=== PATIENT | male | born 1980 | race Caucasian/White ===

== ENCOUNTER 2016-06-28 18:35 | Inpatient (IN) | payer OTHER ==
[~2016-06-28] VITALS: Ht 162.6 cm; Wt 60.3 kg
[2016-06-28] MEDS ORDERED: SODIUM CHLORIDE 0.9% 500ML 500 ML IV STA (18:41)
[2016-06-28] MEDS ORDERED: LORAZEPAM 2 MG/ML 1 ML VIAL IV STA (18:41)
[2016-06-28 18:56] LABS: HEMATOCRIT 41.4 % (42-52); MEAN CELL VOLUME 97.4 fL (80-100); MEAN CORPUSCULAR HEMOGLOBIN 35.5 pg (25-34); MEAN CORPUSCULAR HGB CONC 36.5 g/dl (32-36); MEAN PLATELET VOLUME 8.9 fL (7.4-10.4); PLATELET COUNT 339 K/uL (130-400); RED BLOOD COUNT 4.25 M/uL (4.7-6.1); WHITE BLOOD COUNT 11.64 K/uL (4.8-10.8)
--- NOTE | 2016-06-28 18:57 | EMERGENCY ROOM VISIT NOTE ---
History Report prepared by Donna: Brandon Cunha Under the Supervision of: Dr. Narayan Rodney M.D. First contact with patient: 18:37 Chief Complaint: SEIZURE Stated Complaint: SEIZURE History of Present Illness The patient is a 36 year old male who presents to the Emergency Room with complaints of a sudden seizure occurring prior to arrival. The patient states that he was at work, and he had a seizure that lasted for about 2-3 minutes. The patient states that he has a history of seizures, and his last seizure was around two years ago. Additionally, he states that he takes Dilantin for his seizures. The patient states that he was fine all day until the seizure, and he states that he has no memory of the incident. The patient denies any headache even after hitting his head. He states that he is not on blood thinners, and he smokes about a pack of cigarettes per day. The patient denies loss of bladder function during the episode as well, and he states that he is taking his Dilantin regularly, however it upsets his stomach. Per EMS report, the patient did hit his head. The patient denies any headache currently. Source of History: patient Onset: prior to arrival Position: other (global) Quality: other (seizure) Timing: other (sudden) Associated Symptoms: No headache Review of Systems See HPI for pertinent positives & negatives. A total of 10 systems reviewed and were otherwise negative. Past Medical & Surgical Medical Problems: (1) Hyponatremia (2) Seizure Social History Smoking Status: Former Smoker Marital Status: single Occupation Status: employed Current/Historical Medications Scheduled Phenytoin Sodium (Dilantin), 100 MG PO QID Allergies Coded Allergies: No Known Allergies (Unverified , 06/28/16) Physical Exam Vital Signs Date Time Temp Pulse Resp B/P Pulse Ox O2 Delivery O2 Flow Rate FiO2 06/28/16 18:50 36.8 107 18 162/82 94 Room Air Physical Exam GENERAL: Patient is in no acute distress. HEENT: Subtle bite to the left side of the tongue. No laceration repair required. Normocephalic atraumatic, mucous membranes moist, no nasal congestion , no scleral icterus. No scalp hematoma. NECK: No stridor, no adenopathy, no meningismus, trachea is midline. LUNGS: Clear to auscultation bilaterally, no wheeze, no rhonchi, breath sounds equal. HEART: Without murmurs gallops or rubs, regular rate and rhythm. ABDOMEN: Soft, nontender, bowel sounds positive, no hernias, no peritonitis. EXTREMITIES: No cyanosis or edema, full range of motion of all the joints without pain or difficulty, no signs for acute trauma. NEUROLOGIC: Oriented x 3, no acute motor or sensory deficits, no focal weakness. SKIN: No rash, no jaundice, no diaphoresis. Medical Decision & Procedures Laboratory Results 06/28/16 18:41 06/28/16 18:41 Test 06/28/16 18:41 Red Blood Count 4.25 M/uL (4.7-6.1) Mean Corpuscular Volume 97.4 fL (80-100) Mean Corpuscular Hemoglobin 35.5 pg (25-34) Mean Corpuscular Hemoglobin Concent 36.5 g/dl (32-36) RDW Standard Deviation 47.1 fL (36.4-46.3) RDW Coefficient of Variation 13.3 % (11.5-14.5) Mean Platelet Volume 8.9 fL (7.4-10.4) Anion Gap 23.0 mmol/L (3-11) Est Creatinine Clear Calc Drug Dose 92.0 ml/min Estimated GFR () 122.0 Estimated GFR (Non- 105.2 BUN/Creatinine Ratio 5.1 (10-20) Osmolality 262 mOsm/kg (280-300) Calcium Level 9.7 mg/dl (8.5-10.1) Magnesium Level 2.1 mg/dl (1.8-2.4) Total Bilirubin 0.7 mg/dl (0.2-1) Direct Bilirubin 0.3 mg/dl (0-0.2) Aspartate Amino Transf (AST/SGOT) 49 U/L (15-37) Alanine Aminotransferase (ALT/SGPT) 36 U/L (12-78) Alkaline Phosphatase 145 U/L (45-117) Total Protein 7.6 gm/dl (6.4-8.2) Albumin 4.3 gm/dl (3.4-5.0) Thyroid Stimulating Hormone (TSH) 4.300 uIu/ml (0.300-4.500) Phenytoin (Dilantin) Level < 0.4 mcg/mL (10-20) Laboratory results reviewed by me. Medications Administered Medications (Trade) Dose Ordered Sig/Nohemy Route Start Time Stop Time Status Last Admin Dose Admin Sodium Chloride (Nss 500ml) 500 ml @ 999 mls/hr Q31M STAT IV 06/28/16 18:41 06/28/16 19:11 DC 06/28/16 18:41 999 MLS/HR Lorazepam 1 mg 1 mg NOW STAT IV 06/28/16 18:41 06/28/16 18:44 DC 06/28/16 19:08 1 MG Sodium Chloride 1,000 ml @ 200 mls/hr Q5H STAT IV 06/28/16 19:31 06/28/16 20:38 DC 06/28/16 20:10 200 MLS/HR Phenytoin Sodium/ Sodium Chloride (Dilantin IV Infusion/Nss 100ml) 120 ml @ 240 mls/hr TODAY@1945 IV 06/28/16 19:45 06/28/16 20:14 DC 06/28/16 20:10 240 MLS/HR Nicotine (Nicoderm Cq 21MG Patch) 1 patch NOW STAT EXT 06/28/16 19:48 06/28/16 19:49 DC 06/28/16 20:38 1 PATCH ED Course 1836: The patient was evaluated in room B4. A complete history and physical exam was performed. 1840: Ativan Inj 1mg IV, Sodium Chloride 500 ml @ 999 mls/hr IV 1930: Sodium Chloride 1000 ml @ 200 mls/hr IV 1939: I reevaluated the patient, and discussed the treatment plans. 1944: Phenytoin Sodium 1000mg/ Sodium Chloride 120ml @ 240 mls/hr IV 1947: NicoDerm Cq 21mg 1 Patch Ext 1950: I discussed the patient's case with Dr. Reyes. He is going to evaluate the patient for further treatment. Medical Decision The patient is a 36 year old male who presents to the ED with complaints of a seizure. Differential diagnoses considered include break through seizure, subtherapeutic Dilantin level, electrolyte imbalance, medication non-compliance , anemia, head injury, syncope. There is a very mild leukocytosis, this is likely consistent with just the stress of his presentation, no concerning anemia. No significant electrolyte abnormality or kidney failure sodium is low at 124, no kidney failure. The patient appears to be in a euthyroid state. EKG shows a sinus rhythm, no acute ischemia. The patient was given IV saline, he received IV Ativan and IV Dilantin. He was given a Nicotine patch. Given the seizure, given the low Dilantin level, given the hyponatremia, admission/observation was felt warranted. I spoke to the patient and case management. The on-call hospitalist was consulted. Consults Time Called: 1942 Consulting Physician: Dr. Reyes Returned Call: 1950 I discussed the patient's case with Dr. Reyes. He is going to evaluate the patient for further treatment. Impression Primary Impression: Seizure Additional Impression: Hyponatremia Scribe Attestation The scribe's documentation has been prepared under my direction and personally reviewed by me in its entirety. I confirm that the note above accurately reflects all work, treatment, procedures, and medical decision making performed by me. Departure Information Dispostion Being Evaluated By Hospitalist Patient Instructions My [facility] Health Problem Qualifiers
[2016-06-28] MEDS ORDERED: DLN100 PO (19:00)
[2016-06-28 19:27] LABS: BUN/CREATININE RATIO 5.1 (10-20); CALCIUM 9.7 mg/dl (8.5-10.1); CREATININE 0.93 mg/dl (0.60-1.40); POTASSIUM 3.8 mmol/L (3.5-5.1)
[2016-06-28] MEDS ORDERED: SODIUM CHLORIDE 0.9% 1000ML 1,000 ML IV STA (19:31)
[2016-06-28] MEDS ORDERED: PHENYTOIN SOD INJ 50 MG/ML 2 ML SYR IV STA (19:31)
[2016-06-28] MEDS ORDERED: PHENYTOIN IV INFUSION 1,000 MG in SODIUM CHLORIDE 0.9% 100ML 100 ML IV SCH (19:45)
[2016-06-28] MEDS ORDERED: NICOTINE 21 MG/24 HR TDSY EXT STA (19:48)
[2016-06-28 20:29] LABS: MAGNESIUM 2.1 mg/dl (1.8-2.4); THYROID STIMULATING HORMONE 4.3 uIu/ml (0.300-4.500)
[2016-06-28] MEDS ORDERED: GABAPENTIN 600 MG TAB PO SCH (20:45)
[2016-06-28] MEDS ORDERED: LORAZEPAM 2 MG/ML 1 ML VIAL IV PRN (20:45)
[2016-06-28] MEDS ORDERED: ACETAMINOPHEN 325 MG TAB PO PRN (20:45)
[2016-06-28] MEDS ORDERED: NITROGLYCERIN 0.4 MG SL PER TAB CHARGE SL PRN (20:45)
[2016-06-28] MEDS ORDERED: ONDANSETRON INJ 2 MG/ML 2 ML VIAL IV PRN (20:45)
[2016-06-28] MEDS ORDERED: LORAZEPAM INJ 1 MG in SYRINGE 0.5 ML IV PRN (20:45)
[2016-06-28] MEDS ORDERED: MULTI-VITAMIN INFUSION INJ 10 ML, THIAMINE HCL INJ 100 MG, FoLIC ACID INJ 1 MG, POTASSI... IV ONE ×5 (21:30)
[2016-06-28 21:37] LABS: URINE APPEARANCE CLEAR (CLEAR); URINE BILIRUBIN NEG (NEG); URINE COLOR YELLOW; URINE NITRITE NEG (NEG); URINE SPECIFIC GRAVITY 1.002 (1.000-1.030); UROBILINOGEN NEG (NEG); ZZUR CULT IF INDIC CLEAN CATCH NO
[2016-06-28 21:42] LABS: MANUAL MICROSCOPIC REQUIRED? NO; REVIEW REQ? NO
[2016-06-28 21:59] LABS: BENZODIAZEPINE, URINE NEG (NEG); COCAINE,URINE NEG (NEG); PHENCYCLIDINE, URINE NEG (NEG)
--- NOTE | 2016-06-28 22:32 | HISTORY & PHYSICAL EXAMINATION ---
DATE OF ADMISSION: 06/28/2016 PRIMARY CARE PHYSICIAN: Dr. Jacobsen Patient history obtained from the px and records. CHIEF COMPLAINT: Fall, possible seizures. HISTORY OF PRESENT ILLNESS: Medical history is significant for seizure disorder, ongoing alcohol and tobacco abuse. Patient has had known seizures since July 2011. Convulsions/generalized seizures witnessed by coworkers. [facility] [place] thought seizures were not alcohol related as they had occurred after the patient had cut down on drinking. Unremarkable EEG and MRI. Patient's last seizure was probably in July 2013. Patient admits to not being compliant with home Dilantin because of GI upset. He has not been taking for med for months. He admits to just taking Dilantin when he is about to go for a blood test. 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 As per records, sudden seizure activity witnessed by employer. Patient has no recollection of the events; thinks he may have been out for a couple of minutes. No tongue biting. No incontinence noted. No chest pain. no sob. No headache. MEDICAL HISTORY: As above. SURGERIES: None. HOME MEDICATIONS: The patient is supposed to take that Dilantin ER 100 mg three times a day as per outpx records. FAMILY HISTORY: No seizure disorder in the family. PERSONAL AND SOCIAL HISTORY: A pack daily. 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 REVIEW OF SYSTEMS: As per HPI. Occasional painless rectal bleeding. all other ROS negative. PHYSICAL EXAMINATION: VITAL SIGNS: Blood pressure noted to be 162/82 pulse rate 107, RR 18, temperature 36.8 and sats 94 on room air. GENERAL: Noted to be irate, no respiratory distress. SKIN: Normal color. HEENT: Hassell palpebral conjunctivae. Dry mucosa. NECK: No JVD. Supple. CHEST: Clear to auscultation. HEART: Tachycardic. ABDOMEN: Nontender. EXTREMITIES: No edema, no tenderness. NEUROLOGIC: No gross focality. LABORATORY DATA: Hemoglobin was noted to be 15, hematocrit 41 white cell count 11.6 and platelets 200 Sodium 124, potassium 3.8, chloride 86, CO2 15, BUN 5, creatinine 0.9, glucose was noted to be 119. Dilantin level was noted to be less than 0.4. ASSESSMENT: 1. Breakthrough seizures hx epilepsy medication noncompliance Patient seems to be in denial hx seizure DSO diagnosis. Seizure threshold possibly lowered by acute on possibly chronic hyponatremia ( outpx sodium 130s) and ongoing alcohol abuse. 2. Situational hypertension. 3. Ongoing tobacco abuse. PLAN: PCU. Careful correction of sodium. hyponatremia siddiqi Nephrology consult RE hyponatremia. Resume Dilantin. Explained to patient need for him to comply w/ Dilantin rx given apprehension related to GI upset w/c he attributes to taking medication in the past. Patient AED options limited by financial constraints. seizure precautions, Ativan prn Neurology consult RE breakthrough seizures DT precautions Nicotine patch. DVT prophylaxis, SCDs. Full code. MTDD
[2016-06-29] VITALS (8 sets, daily range): BP systolic 134–170; BP diastolic 88–113; PULSE 66–103; TEMP 36.4–37.3; O2SAT 95–98; Ht 162.6 cm; Wt 60.3 kg
[2016-06-29] MEDS ORDERED: GABAPENTIN 600 MG TAB PO ONE (02:00)
[2016-06-29 05:24] LABS: BLOOD UREA NITROGEN 6 mg/dl (7-18); BUN/CREATININE RATIO 9.9 (10-20); CALCIUM 8.9 mg/dl (8.5-10.1); CARBON DIOXIDE 27 mmol/L (21-32); CHLORIDE 102 mmol/L (98-107); CREATININE 0.59 mg/dl (0.60-1.40); GLUCOSE 89 mg/dl (70-99); POTASSIUM 4.1 mmol/L (3.5-5.1); SODIUM 137 mmol/L (136-145)
[2016-06-29 05:37] LABS: BASO % 0.4 %; BASO ABS # 0.04 K/uL (0-0.2); COMPLETE YES; EOS % 2.2 %; HEMATOCRIT 40.8 % (42-52); IG% 0.2 %; LYMPH % 18.5 %; MEAN CELL VOLUME 94.4 fL (80-100); MEAN PLATELET VOLUME 8.5 fL (7.4-10.4); MONO % 14.7 %; PLATELET COUNT 303 K/uL (130-400); RED BLOOD COUNT 4.32 M/uL (4.7-6.1); WHITE BLOOD COUNT 9.17 K/uL (4.8-10.8)
[2016-06-29] MEDS: GABAPENTIN 600MG Q6H DOSE PO SCH ×2 (08:35→13:29)
[2016-06-29] MEDS: NICOTINE 21 MG/24 HR TDSY TD SCH (08:35)
[2016-06-29] MEDS: PHENYTOIN SODIUM ER 100 MG CAP PO SCH ×5 (08:36→20:27)
[2016-06-29] MEDS: THIAMINE HCL 100 MG TAB PO SCH (08:36)
[2016-06-29] MEDS: MULTIVITAMIN TAB PO SCH (08:36)
[2016-06-29] MEDS ORDERED: DEXTROSE 5% 1000ML 1,000 ML IV SCH (09:45)
--- NOTE | 2016-06-29 10:25 | NEPHROLOGY CONSULTATION ---
DATE OF CONSULTATION: 06/29/2016 ATTENDING OF RECORD: Dr. Huggins. REASON FOR CONSULTATION: Hyponatremia. HISTORY OF PRESENT ILLNESS: This is a 36-year-old male who has a history of seizures, was seen by Dr. Tyler in 2011. At that time, it was noted that he was an alcoholic, drinking about a fifth of Shashi Perez plus 6-12 beers daily for many years and he has been in rehab several times in the past. The patient currently states that he drinks about 4 or 5 large bottles of water a day and drinks about 4-6 beers at night. 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 The patient back in 2011 was evaluated for 3 unexplained convulsions, probably not alcohol related, and may have epilepsy and started him on Keppra. However, it was difficult since he did not have health insurance, does not appear that he followed up with neurology since then. The patient does have seizure disorder, ongoing alcohol and tobacco abuse. 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 He does not remember any of the events. Tongue was not damaged. No incontinence. The patient feels good at this point. PAST MEDICAL HISTORY: Seizures, noncompliant with prophylactic medication, alcoholism. PAST SURGICAL HISTORY: None. FAMILY HISTORY: No significant seizure history in family. SOCIAL HISTORY: Smokes about a pack of cigarettes a day, drinks about 4-5 beers at night. No drugs. 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 REVIEW OF SYSTEMS: The patient feels fine with no complaints, no headaches, no blurry vision, no dysphagia, no shortness of breath, no chest pain, no nausea or vomiting, no diarrhea or constipation, no rash or itching. All other review of systems otherwise negative. CURRENT MEDICATIONS: Neurontin 600 mg once a day as well as q.12 hours, Nicoderm patch, thiamine 100 mg daily, multivitamin daily, folic acid daily, Dilantin 100 mg 4 times a day, banana bag at 60 mL an hour. PHYSICAL EXAMINATION: VITAL SIGNS: Temperature 37, pulse 103, respiratory rate 16, blood pressure 144/104, satting 95% on room air. GENERAL: Awake, alert, oriented x3. EYES: No scleral icterus. ENT: Moist mucous membranes. NECK: Supple. PULMONARY: Clear to auscultation. CARDIAC: Regular rate and rhythm. ABDOMEN: Bowel sounds positive. Soft, nontender. EXTREMITIES: No clubbing, cyanosis or edema. NEUROLOGIC: Nonfocal. DERMATOLOGIC: No rash or ulcers noted. LABORATORIES: Sodium level is 137, potassium is 4.1, chloride is 102, bicarb is 27, BUN 6, creatinine 0.59, glucose 89, lactic acid 0.7, calcium is 8.9. TSH is 4.3, albumin is 4.3, alkaline phosphatase 145. AST mildly elevated at 49. Magnesium level is 2.1. Serum osmolality 262. Urine osmolality 65. Urine random sodium is 19. UA is bland with specific gravity of 1.002. White count was 11, now down to 9, H\T\H 14 and 40, platelet count is 303. Blood culture is pending. IMPRESSION AND PLAN: Hyponatremia with a sodium level of 124 at 7:00 p.m. last night and was given normal saline and sodium level this morning is up to 137 at 4:30. So sodium level corrected by 13 points in 9 hours, concern for overcorrection at this time. The patient with polydipsia/beer potomania and drinks lots of water and urine osm was low. So sodium level corrected quickly with fluid restriction and normal saline. I have stopped the banana bag which is mixed in normal saline and I have started D5W one liter wide open. We will try to lower the serum sodium levels back down into the low 130s and then monitor for signs of demyelination syndrome. The patient currently asymptomatic, has been restarted on his Dilantin which he was noncompliant with, and monitor for signs of alcohol withdrawal. I appreciate consultation. SUDEEP
[2016-06-29] MEDS: DEXTROSE 5% 1000ML 1,000 ML IV SCH ×2 (12:30→21:14)
--- NOTE | 2016-06-29 14:39 | Neurology Consultation ---
Neurology Consultation Date of Consultation: Jun 29, 2016. Attending Physician: Jamey Huggins DO Primary Care Physician: Anil Jacobsen M.D. Reason for Consultation: breakthrough seizure History of Present Illness Source: patient Patient has had known seizures since July 2011. Narayan has a PMH of seizures, he was seen in our clinic by Dr Cooper and then by Dr Aguilar but has not been seen for over a year. 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 He states a co worker said that he was standing and he tried to catch him. His eye rolled back and he was throthing and had some jerking motions. He was not incontinent or didn't bite his tongue. he admits he has not been taking his seizure medication for months because if gives him the runs. His insurance would not cover another medication that he was tried on so they kept him on dilantin. He drinks a pot of coffee several times a day along with quarts of water at work and drinks 3-4 beers at night when he goes home from work. he has not decreased this recently. he was taking the dilantin just before going to the lab for a blood test. the seizure was reported to last several minutes and he was confused until he got to the hospital. he did hit his head but he states he does not have a headache. denies CP, SOB, abdominal pain, weakness, numbness tingling, vision changes, N, V. he is a pack per day smokier and uses marijuana Social History Smoking Status: Current every day smoker Marital Status: single Occupation Status: employed Allergies Coded Allergies: No Known Allergies (Unverified , 06/28/16) Current Inpatient Medications Current Inpatient Medications Medications (Trade) Dose Ordered Sig/Nohemy Route Start Time Stop Time Status Last Admin Dose Admin Phenytoin Sodium (Dilantin Er Cap) 100 mg QID PO 06/29/16 08:00 07/29/16 07:59 06/29/16 13:29 100 MG Acetaminophen (Tylenol Tab) 325 mg Q6H PRN PO 06/28/16 20:45 07/28/16 20:44 Nitroglycerin 0.4 mg 0.4 mg UD PRN SL 06/28/16 20:45 07/28/16 20:44 Lorazepam/Syringe (Ativan Inj/ Syringe) 1 ml @ 0.5 mls/min Q5M PRN IV 06/28/16 20:45 07/28/16 20:44 Ondansetron HCl (Zofran Inj) 4 mg Q6H PRN IV 06/28/16 20:45 07/28/16 20:44 Nicotine (Nicoderm Cq 21MG Patch) 1 patch QAM TD 06/29/16 09:00 07/29/16 08:59 06/29/16 08:35 1 PATCH Miscellaneous (Remove Nicoderm Patch) 1 ea HS N/A 06/28/16 21:00 07/28/16 20:59 06/28/16 21:00 1 EA Lorazepam (Ativan Inj) 1 mg Q1H PRN IV 06/28/16 20:45 07/28/16 20:44 Thiamine HCl (Vitamin B-1 Tab) 100 mg QAM PO 06/29/16 09:00 07/29/16 08:59 06/29/16 08:36 100 MG Multivitamins (Multivitamin Tab) 1 tab QAM PO 06/29/16 09:00 07/29/16 08:59 06/29/16 08:36 1 TAB Folic Acid (Folvite Tab) 1 mg QAM PO 06/29/16 09:00 07/29/16 08:59 06/29/16 08:36 1 MG Gabapentin (Neurontin Tab) 600 mg Q8H PO 06/29/16 22:00 06/30/16 14:01 Gabapentin (Neurontin Tab) 600 mg Q12H PO 07/01/16 00:00 07/01/16 12:01 Gabapentin 600 mg 600 mg Q24H PO 07/02/16 12:00 07/02/16 12:01 Dextrose (D5W 1000ml) 1,000 ml @ 100 mls/hr Q10H IV 06/29/16 12:30 07/29/16 12:29 Physical Exam Vital Signs (Past 24 Hrs): Date Time Temp Pulse Resp B/P Pulse Ox O2 Delivery O2 Flow Rate FiO2 06/29/16 12:09 36.8 66 18 159/92 98 Room Air 06/29/16 12:00 95 Room Air 06/29/16 12:00 Room Air 06/29/16 10:40 104 06/29/16 08:59 37.0 103 16 144/104 95 Room Air 06/29/16 07:32 92 06/29/16 04:37 91 16 153/87 94 Room Air 06/29/16 04:21 91 06/29/16 02:38 104 18 149/91 95 Room Air 06/29/16 00:15 104 06/28/16 23:01 114 20 152/78 95 Room Air 06/28/16 21:14 96 17 129/94 97 Room Air 06/28/16 20:42 103 06/28/16 18:50 36.8 107 18 162/82 94 Room Air Physical Exam: Constitutional: appearance nourished, healthy and normal Ears, Nose, Mouth and Throat: mucous membranes moist, no injection and skin normal, eyes normal Cardiovascular: normal S-1 and S-2 and regular rate and rhythm Respiratory: clear to auscultation (CTA) and no rales, rhonchi or wheeze Musculoskeletal: no peripheral edema and good distal pulses Skin: no stigmata of neurocutaneous disease noted and normal and intact, multiple tatoos on arms and neck Eyes: extraocular muscles intact (EOMI) and pupils equal, round and reactive to light (PERRL), good vascular pulsations, disc flat NEUROLOGIC EXAMINATION: Mental status: Alert and interactive Oriented to full date and location Oriented to person Speech fluent with no evidence of aphasia Cranial Nerves smile eye brow raise symmetric, tongue midline Reflexes: Deep tendon reflexes were symmetrical and graded 2/5. Plantar responses were flexor. Sensory: no sensory deficits, cool and light touch Coordination: Romberg absent Gait/Stance: Posture normal. Gait normal: with steady with steps, base, turning, tandem gait. Motor: Negative for pronator drift of out stretched arms with eyes closed. Strength: biceps triceps deltoids hand assistant manager/embalmer intrinsics bilaterally 5/5, hip flex plantar flex ext 5/5 bilaterally Laboratory Results Past 24 Hours: 06/29/16 04:37 Red Blood Count 4.32, Mean Corpuscular Volume 94.4, Mean Corpuscular Hemoglobin 34.0, Mean Corpuscular Hemoglobin Concent 36.0, Mean Platelet Volume 8.5, Neutrophils (%) (Auto) 64.0, Lymphocytes (%) (Auto) 18.5, Monocytes (%) (Auto) 14.7, Eosinophils (%) (Auto) 2.2, Basophils (%) (Auto) 0.4, Neutrophils # (Auto ) 5.86, Lymphocytes # (Auto) 1.70, Monocytes # (Auto) 1.35, Eosinophils # (Auto ) 0.20, Basophils # (Auto) 0.04 06/29/16 04:37 06/29/16 12:20 Test 06/28/16 18:41 06/28/16 20:23 06/28/16 20:30 06/28/16 21:15 Osmolality 262 mOsm/kg (280-300) Magnesium Level 2.1 mg/dl (1.8-2.4) Total Bilirubin 0.7 mg/dl (0.2-1) Direct Bilirubin 0.3 mg/dl (0-0.2) Aspartate Amino Transf (AST/SGOT) 49 U/L (15-37) Alanine Aminotransferase (ALT/SGPT) 36 U/L (12-78) Alkaline Phosphatase 145 U/L (45-117) Total Protein 7.6 gm/dl (6.4-8.2) Albumin 4.3 gm/dl (3.4-5.0) Thyroid Stimulating Hormone (TSH) 4.300 uIu/ml (0.300-4.500) Ethyl Alcohol mg/dL < 3.0 mg/dl (0-3) Lactic Acid Level 0.7 mmol/L (0.4-2.0) Urine Color YELLOW Urine Appearance CLEAR (CLEAR) Urine pH 7.0 (4.5-7.5) Urine Specific [place] 1.002 (1.000-1.030) Urine Protein NEG (NEG) Urine Glucose (UA) NEG (NEG) Urine Ketones TRACE (NEG) Urine Occult Blood NEG (NEG) Urine Nitrite NEG (NEG) Urine Bilirubin NEG (NEG) Urine Urobilinogen NEG (NEG) Urine Leukocyte Esterase NEG (NEG) Urine Osmolality 65 mOms/kg (500-800) Urine Random Sodium 19 mEq/L Urine Opiates Screen NEG (NEG) Urine Methadone, Qualitative NEG (NEG) Urine Barbiturates NEG (NEG) Urine Phencyclidine (PCP) Level NEG (NEG) Ur Amphetamine/Methamphetamine NEG (NEG) MDMA (Ecstasy) Screen NEG (NEG) Urine Benzodiazepines Screen NEG (NEG) Urine Cocaine Metabolite NEG (NEG) Urine Marijuana (THC) NEG (NEG) Test 06/29/16 04:37 White Blood Count 9.17 K/uL (4.8-10.8) Red Blood Count 4.32 M/uL (4.7-6.1) Hemoglobin 14.7 g/dL (14.0-18.0) Hematocrit 40.8 % (42-52) Mean Corpuscular Volume 94.4 fL (80-100) Mean Corpuscular Hemoglobin 34.0 pg (25-34) Mean Corpuscular Hemoglobin Concent 36.0 g/dl (32-36) Platelet Count 303 K/uL (130-400) Mean Platelet Volume 8.5 fL (7.4-10.4) Neutrophils (%) (Auto) 64.0 % Lymphocytes (%) (Auto) 18.5 % Monocytes (%) (Auto) 14.7 % Eosinophils (%) (Auto) 2.2 % Basophils (%) (Auto) 0.4 % Neutrophils # (Auto) 5.86 K/uL (1.4-6.5) Lymphocytes # (Auto) 1.70 K/uL (1.2-3.4) Monocytes # (Auto) 1.35 K/uL (0.11-0.59) Eosinophils # (Auto) 0.20 K/uL (0-0.5) Basophils # (Auto) 0.04 K/uL (0-0.2) RDW Standard Deviation 45.8 fL (36.4-46.3) RDW Coefficient of Variation 13.1 % (11.5-14.5) Immature Granulocyte % (Auto) 0.2 % Immature Granulocyte # (Auto) 0.02 K/uL (0.00-0.02) Anion Gap 8.0 mmol/L (3-11) Est Creatinine Clear Calc Drug Dose 145.0 ml/min Estimated GFR () > 150.0 Estimated GFR (Non- 130.3 BUN/Creatinine Ratio 9.9 (10-20) Calcium Level 8.9 mg/dl (8.5-10.1) Phenytoin (Dilantin) Level 14.9 mcg/mL (10-20) Imaging no imaging Impression 36 year old male s/p break though seizure sodium 124 on admission Plan 1. sodium 124 at admission likely coffee and water intact to access 2. dilantin 100 mg QID for now will discuss alternative if insurance will accept 3. decrease coffee intake excessive coffee 2 + pots per day along with several quarts of water per day 4. thiame and folic given continue 5. 4-5 beers per night watch for signs of DTs should decrease intake 6. discussed seizure safety, heights no swimming alone, no driving for 6 months 7. will need follow up after discharge for medication adjustments and monitoring -will check to see what medications insurance will cover I have seen and discussed above patient with Dr Bushra Foster, neurology Pt seen and examined. Sz related to noncompliance. Awake alert, NCAT, minor L tongue laceration, symmetric strength. Imp breakthrough sz related to med noncompliance. As outpt we will explore pt coverage re trial with Maliha Dickens. F/u with Dr Aguilar 1-2 weeks post dc, Pt advised he may not drive for 6 months. TIFFANIE Foster MD
--- NOTE | 2016-06-29 15:42 | Progress Note ---
Subjective Date of Service: Jun 29, 2016. Subjective Pt evaluation today including: conversation w/ patient, physical exam, lab review, review of studies, review of inpatient medication list Saw/examined the patient in the ER, Room C7 He is doing well, states he had a seizure on presentation, a co-worker found him Currently feels fine and no complaints - eager to get home Review of Systems Constitutional: No chills, No fever, No weakness Respiratory: No cough, No shortness of breath, No sputum Cardiac: No chest pain, No edema, No palpitations Abdomen: No GI bleeding, No constipation, No diarrhea, No nausea, No pain, No vomiting Male : No dysuria Neurologic: No balance problems, No memory loss (does not recall seizure), No numbness/tingling, No paralysis, No vertigo, No weakness Heme: No abnormal bleeding/bruising Medications Current Inpatient Medications Medications (Trade) Dose Ordered Sig/Nohemy Route Start Time Stop Time Status Last Admin Dose Admin Phenytoin Sodium (Dilantin Er Cap) 100 mg QID PO 06/29/16 08:00 07/29/16 07:59 06/29/16 13:29 100 MG Acetaminophen (Tylenol Tab) 325 mg Q6H PRN PO 06/28/16 20:45 07/28/16 20:44 Nitroglycerin 0.4 mg 0.4 mg UD PRN SL 06/28/16 20:45 07/28/16 20:44 Lorazepam/Syringe (Ativan Inj/ Syringe) 1 ml @ 0.5 mls/min Q5M PRN IV 06/28/16 20:45 07/28/16 20:44 Ondansetron HCl (Zofran Inj) 4 mg Q6H PRN IV 06/28/16 20:45 07/28/16 20:44 Nicotine (Nicoderm Cq 21MG Patch) 1 patch QAM TD 06/29/16 09:00 07/29/16 08:59 06/29/16 08:35 1 PATCH Miscellaneous (Remove Nicoderm Patch) 1 ea HS N/A 06/28/16 21:00 07/28/16 20:59 06/28/16 21:00 1 EA Lorazepam (Ativan Inj) 1 mg Q1H PRN IV 06/28/16 20:45 07/28/16 20:44 Thiamine HCl (Vitamin B-1 Tab) 100 mg QAM PO 06/29/16 09:00 07/29/16 08:59 06/29/16 08:36 100 MG Multivitamins (Multivitamin Tab) 1 tab QAM PO 06/29/16 09:00 07/29/16 08:59 06/29/16 08:36 1 TAB Folic Acid (Folvite Tab) 1 mg QAM PO 06/29/16 09:00 07/29/16 08:59 06/29/16 08:36 1 MG Gabapentin (Neurontin Tab) 600 mg Q8H PO 06/29/16 22:00 06/30/16 14:01 Gabapentin (Neurontin Tab) 600 mg Q12H PO 07/01/16 00:00 07/01/16 12:01 Gabapentin 600 mg 600 mg Q24H PO 07/02/16 12:00 07/02/16 12:01 Dextrose (D5W 1000ml) 1,000 ml @ 100 mls/hr Q10H IV 06/29/16 12:30 07/29/16 12:29 Objective Vital Signs Date Time Temp Pulse Resp B/P Pulse Ox O2 Delivery O2 Flow Rate FiO2 06/29/16 12:09 36.8 66 18 159/92 98 Room Air 06/29/16 12:00 95 Room Air 06/29/16 12:00 Room Air 06/29/16 10:40 104 06/29/16 08:59 37.0 103 16 144/104 95 Room Air 06/29/16 07:32 92 06/29/16 04:37 91 16 153/87 94 Room Air 06/29/16 04:21 91 06/29/16 02:38 104 18 149/91 95 Room Air 06/29/16 00:15 104 06/28/16 23:01 114 20 152/78 95 Room Air 06/28/16 21:14 96 17 129/94 97 Room Air 06/28/16 20:42 103 06/28/16 18:50 36.8 107 18 162/82 94 Room Air Physical Exam General Appearance: WD/WN, no apparent distress ENT: hearing grossly normal Neck: supple Respiratory/Chest: lungs clear, normal breath sounds, no respiratory distress, no accessory muscle use Cardiovascular: regular rate, rhythm, no edema, no murmur Abdomen: normal bowel sounds, non tender, soft Extremities: normal inspection, no pedal edema 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, no motor/sensory deficits, alert, normal mood/affect, oriented x 3 Skin: normal color Laboratory Results Last 24 Hours Test 06/28/16 18:41 06/28/16 20:23 06/28/16 20:30 06/28/16 21:15 White Blood Count 11.64 K/uL Red Blood Count 4.25 M/uL Hemoglobin 15.1 g/dL Hematocrit 41.4 % Mean Corpuscular Volume 97.4 fL Mean Corpuscular Hemoglobin 35.5 pg Mean Corpuscular Hemoglobin Concent 36.5 g/dl RDW Standard Deviation 47.1 fL RDW Coefficient of Variation 13.3 % Platelet Count 339 K/uL Mean Platelet Volume 8.9 fL Sodium Level 125 mmol/L Potassium Level 3.8 mmol/L Chloride Level 86 mmol/L Carbon Dioxide Level 15 mmol/L Anion Gap 23.0 mmol/L Blood Urea Nitrogen 5 mg/dl Creatinine 0.93 mg/dl Est Creatinine Clear Calc Drug Dose 92.0 ml/min Estimated GFR () 122.0 Estimated GFR (Non- 105.2 BUN/Creatinine Ratio 5.1 Random Glucose 119 mg/dl Osmolality 262 mOsm/kg Calcium Level 9.7 mg/dl Magnesium Level 2.1 mg/dl Total Bilirubin 0.7 mg/dl Direct Bilirubin 0.3 mg/dl Aspartate Amino Transf (AST/SGOT) 49 U/L Alanine Aminotransferase (ALT/SGPT) 36 U/L Alkaline Phosphatase 145 U/L Total Protein 7.6 gm/dl Albumin 4.3 gm/dl Thyroid Stimulating Hormone (TSH) 4.300 uIu/ml Phenytoin (Dilantin) Level < 0.4 mcg/mL Ethyl Alcohol mg/dL < 3.0 mg/dl Lactic Acid Level 0.7 mmol/L Urine Color YELLOW Urine Appearance CLEAR Urine pH 7.0 Urine Specific [place] 1.002 Urine Protein NEG Urine Glucose (UA) NEG Urine Ketones TRACE Urine Occult Blood NEG Urine Nitrite NEG Urine Bilirubin NEG Urine Urobilinogen NEG Urine Leukocyte Esterase NEG Urine Osmolality 65 mOms/kg Urine Random Sodium 19 mEq/L Urine Opiates Screen NEG Urine Methadone, Qualitative NEG Urine Barbiturates NEG Urine Phencyclidine (PCP) Level NEG Ur Amphetamine/Methamphetamine NEG MDMA (Ecstasy) Screen NEG Urine Benzodiazepines Screen NEG Urine Cocaine Metabolite NEG Urine Marijuana (THC) NEG Test 06/29/16 04:37 06/29/16 12:20 White Blood Count 9.17 K/uL Red Blood Count 4.32 M/uL Hemoglobin 14.7 g/dL Hematocrit 40.8 % Mean Corpuscular Volume 94.4 fL Mean Corpuscular Hemoglobin 34.0 pg Mean Corpuscular Hemoglobin Concent 36.0 g/dl Platelet Count 303 K/uL Mean Platelet Volume 8.5 fL Neutrophils (%) (Auto) 64.0 % Lymphocytes (%) (Auto) 18.5 % Monocytes (%) (Auto) 14.7 % Eosinophils (%) (Auto) 2.2 % Basophils (%) (Auto) 0.4 % Neutrophils # (Auto) 5.86 K/uL Lymphocytes # (Auto) 1.70 K/uL Monocytes # (Auto) 1.35 K/uL Eosinophils # (Auto) 0.20 K/uL Basophils # (Auto) 0.04 K/uL RDW Standard Deviation 45.8 fL RDW Coefficient of Variation 13.1 % Immature Granulocyte % (Auto) 0.2 % Immature Granulocyte # (Auto) 0.02 K/uL Sodium Level 137 mmol/L 134 mmol/L Potassium Level 4.1 mmol/L Chloride Level 102 mmol/L Carbon Dioxide Level 27 mmol/L Anion Gap 8.0 mmol/L Blood Urea Nitrogen 6 mg/dl Creatinine 0.59 mg/dl Est Creatinine Clear Calc Drug Dose 145.0 ml/min Estimated GFR () > 150.0 Estimated GFR (Non- 130.3 BUN/Creatinine Ratio 9.9 Random Glucose 89 mg/dl Calcium Level 8.9 mg/dl Phenytoin (Dilantin) Level 14.9 mcg/mL Assessment and Plan This is a 36 year old male with PMH of seizure disorder, tobacco use disorder, alcohol abuse presents status-post seizure episode Seizure Disorder patient with a history of epileptic seizures is to be on Dilantin - but does not take this due to side effects (diarrhea) states he takes this prior to his blood tests so it appears as if he takes this chronically has been off of Dilantin for months now witness seizure event Dilantin restarted appreciate neurology input - will discuss other options if covered by insurance Hyponatremia patient presented with hyponatremia, 124 - likely due to excessive water intake and alcohol use was given fluids in the ER and he overcorrected to 137 appreciate nephrology input given bolus of D5W, now on D5 @ 100mL/hr sodium level down to 134 at noon, will recheck in AM Alcohol Abuse drinks nightly; 3-4 beers currently getting folate/thiamine monitor Mg levels will monitor for DTs Tobacco Use Disorder Nicotine patch placed DVT ppx SCDs/ambulation FULL CODE
[2016-06-29] MEDS ORDERED: AMLODIPINE BESYLATE 5 MG TAB PO ONE (19:15)
[2016-06-29] MEDS: GABAPENTIN 600MG Q8H DOSE PO SCH (21:07)
[2016-06-30 00:17] VITALS: BP 115/82; PULSE 82; TEMP 36.7; O2SAT 96
[2016-06-30] MEDS: DEXTROSE 5% 1000ML 1,000 ML IV SCH ×3 (01:18→05:58)
[2016-06-30 03:53] VITALS: BP 128/80; PULSE 91; TEMP 37; O2SAT 96
[2016-06-30] MEDS: GABAPENTIN 600MG Q8H DOSE PO SCH (05:01)
[2016-06-30 06:53] LABS: BLOOD UREA NITROGEN 3 mg/dl (7-18); BUN/CREATININE RATIO 6.4 (10-20); CARBON DIOXIDE 28 mmol/L (21-32); CHLORIDE 99 mmol/L (98-107); GLUCOSE 86 mg/dl (70-99); MAGNESIUM 2.2 mg/dl (1.8-2.4); POTASSIUM 3.9 mmol/L (3.5-5.1); SODIUM 134 mmol/L (136-145)
[2016-06-30] MEDS: THIAMINE HCL 100 MG TAB PO SCH (08:10)
[2016-06-30] MEDS: MULTIVITAMIN TAB PO SCH (08:10)
[2016-06-30] MEDS: NICOTINE 21 MG/24 HR TDSY TD SCH (08:10)
[2016-06-30] MEDS: PHENYTOIN SODIUM ER 100 MG CAP PO SCH (08:11)
--- NOTE | 2016-06-30 08:11 | Nephrology Progress Note ---
Nephrology Progress Note Date of Service: Jun 30, 2016. Subjective 36 yo male with polydipsia contributing to hyponatremia and sodium levels are stable. on d5w trying to prevent overcorrection. pt feels good. no headaches. had a seizure from noncompliance with seizure medication. Objective Date Time Temp Pulse Resp B/P Pulse Ox O2 Delivery O2 Flow Rate FiO2 06/30/16 04:00 Room Air 06/30/16 03:53 37.0 91 16 128/80 96 Room Air 06/30/16 00:17 36.7 82 16 115/82 96 Room Air 06/29/16 23:59 Room Air 06/29/16 20:31 134/113 141/92 06/29/16 20:00 Room Air 06/29/16 18:55 165/88 06/29/16 18:50 37.3 94 18 165/88 95 Room Air 06/29/16 16:18 Room Air 06/29/16 16:00 36.4 96 20 170/110 98 Room Air 06/29/16 12:09 36.8 66 18 159/92 98 Room Air 06/29/16 12:00 95 Room Air 06/29/16 12:00 Room Air 06/29/16 10:40 104 06/29/16 08:59 37.0 103 16 144/104 95 Room Air Physical Exam: General-aaox3 Eyes-no scleral icterus ENT-mmm Neck-supple Lungs-cta Heart-rrr Abdomen-bs+ s/nt/nd Extremities-no c/c/e Neuro-nonfocal Current Inpatient Medications Medications (Trade) Dose Ordered Sig/Nohemy Route Start Time Stop Time Status Last Admin Dose Admin Phenytoin Sodium (Dilantin Er Cap) 100 mg QID PO 06/29/16 08:00 07/29/16 07:59 06/29/16 20:27 100 MG Acetaminophen (Tylenol Tab) 325 mg Q6H PRN PO 06/28/16 20:45 07/28/16 20:44 Nitroglycerin 0.4 mg 0.4 mg UD PRN SL 06/28/16 20:45 07/28/16 20:44 Lorazepam/Syringe (Ativan Inj/ Syringe) 1 ml @ 0.5 mls/min Q5M PRN IV 06/28/16 20:45 07/28/16 20:44 Ondansetron HCl (Zofran Inj) 4 mg Q6H PRN IV 06/28/16 20:45 07/28/16 20:44 Nicotine (Nicoderm Cq 21MG Patch) 1 patch QAM TD 06/29/16 09:00 07/29/16 08:59 06/29/16 08:35 1 PATCH Miscellaneous (Remove Nicoderm Patch) 1 ea HS N/A 06/28/16 21:00 07/28/16 20:59 06/29/16 20:30 1 EA Lorazepam (Ativan Inj) 1 mg Q1H PRN IV 06/28/16 20:45 07/28/16 20:44 06/29/16 18:50 1 MG Thiamine HCl (Vitamin B-1 Tab) 100 mg QAM PO 06/29/16 09:00 07/29/16 08:59 06/29/16 08:36 100 MG Multivitamins (Multivitamin Tab) 1 tab QAM PO 06/29/16 09:00 07/29/16 08:59 06/29/16 08:36 1 TAB Folic Acid (Folvite Tab) 1 mg QAM PO 06/29/16 09:00 07/29/16 08:59 06/29/16 08:36 1 MG Gabapentin (Neurontin Tab) 600 mg Q8H PO 06/29/16 22:00 06/30/16 14:01 06/30/16 05:01 600 MG Gabapentin (Neurontin Tab) 600 mg Q12H PO 07/01/16 00:00 07/01/16 12:01 Gabapentin 600 mg 600 mg Q24H PO 07/02/16 12:00 07/02/16 12:01 Dextrose (D5W 1000ml) 1,000 ml @ 125 mls/hr Q8H IV 06/29/16 12:30 07/29/16 12:29 06/30/16 05:58 125 MLS/HR Last 24 Hours Test 06/29/16 12:20 06/29/16 17:38 06/29/16 22:57 06/30/16 05:42 Sodium Level 134 mmol/L 134 mmol/L 137 mmol/L 134 mmol/L Potassium Level 3.9 mmol/L Chloride Level 99 mmol/L Carbon Dioxide Level 28 mmol/L Anion Gap 7.0 mmol/L Blood Urea Nitrogen 3 mg/dl Creatinine 0.50 mg/dl Est Creatinine Clear Calc Drug Dose 171.1 ml/min Estimated GFR () > 150.0 Estimated GFR (Non- 139.4 BUN/Creatinine Ratio 6.4 Random Glucose 86 mg/dl Calcium Level 9.0 mg/dl Magnesium Level 2.2 mg/dl Assessment & Plan hyponatremia from polydipsia including alcohol and water-initially corrected very quickly and started on d5w to reverse the correction and lower the sodium. sodium went from 124 to 137 and lowered down to 134 and currently 134 this morning. will stop the d5w now and d/c fluid restriction. recommended not to drink as much liquids upon discharge and would recheck sodium levels on monday. if develops headaches in the near term, come back to the ER for further evaluation.
[2016-06-30] MEDS ORDERED: DLN100 PO (09:37)
--- NOTE | 2016-06-30 09:37 | Progress Note ---
Subjective Date of Service: Jun 30, 2016. Subjective Pt evaluation today including: conversation w/ patient, physical exam, lab review, review of studies, review of inpatient medication list Saw/examined the patient in room 204 He is doing well today No headaches, no complaints at this time Review of Systems Respiratory: No shortness of breath Cardiac: No chest pain Abdomen: No diarrhea, No nausea, No pain, No vomiting Neurologic: No balance problems, No memory loss, No numbness/tingling, No paralysis, No vertigo, No weakness Heme: No abnormal bleeding/bruising Medications Current Inpatient Medications Medications (Trade) Dose Ordered Sig/Nohemy Route Start Time Stop Time Status Last Admin Dose Admin Phenytoin Sodium (Dilantin Er Cap) 100 mg QID PO 06/29/16 08:00 07/29/16 07:59 06/30/16 08:11 100 MG Acetaminophen (Tylenol Tab) 325 mg Q6H PRN PO 06/28/16 20:45 07/28/16 20:44 Nitroglycerin 0.4 mg 0.4 mg UD PRN SL 06/28/16 20:45 07/28/16 20:44 Lorazepam/Syringe (Ativan Inj/ Syringe) 1 ml @ 0.5 mls/min Q5M PRN IV 06/28/16 20:45 07/28/16 20:44 Ondansetron HCl (Zofran Inj) 4 mg Q6H PRN IV 06/28/16 20:45 07/28/16 20:44 Nicotine (Nicoderm Cq 21MG Patch) 1 patch QAM TD 06/29/16 09:00 07/29/16 08:59 06/30/16 08:10 1 PATCH Miscellaneous (Remove Nicoderm Patch) 1 ea HS N/A 06/28/16 21:00 07/28/16 20:59 06/29/16 20:30 1 EA Lorazepam (Ativan Inj) 1 mg Q1H PRN IV 06/28/16 20:45 07/28/16 20:44 06/29/16 18:50 1 MG Thiamine HCl (Vitamin B-1 Tab) 100 mg QAM PO 06/29/16 09:00 07/29/16 08:59 06/30/16 08:10 100 MG Multivitamins (Multivitamin Tab) 1 tab QAM PO 06/29/16 09:00 07/29/16 08:59 06/30/16 08:10 1 TAB Folic Acid (Folvite Tab) 1 mg QAM PO 06/29/16 09:00 07/29/16 08:59 06/30/16 08:11 1 MG Gabapentin (Neurontin Tab) 600 mg Q8H PO 06/29/16 22:00 06/30/16 14:01 06/30/16 05:01 600 MG Gabapentin (Neurontin Tab) 600 mg Q12H PO 07/01/16 00:00 07/01/16 12:01 Gabapentin (Neurontin Tab) 600 mg Q24H PO 07/02/16 12:00 07/02/16 12:01 Objective Vital Signs Date Time Temp Pulse Resp B/P Pulse Ox O2 Delivery O2 Flow Rate FiO2 06/30/16 04:00 Room Air 06/30/16 03:53 37.0 91 16 128/80 96 Room Air 06/30/16 00:17 36.7 82 16 115/82 96 Room Air 06/29/16 23:59 Room Air 06/29/16 20:31 134/113 141/92 06/29/16 20:00 Room Air 06/29/16 18:55 165/88 06/29/16 18:50 37.3 94 18 165/88 95 Room Air 06/29/16 16:18 Room Air 06/29/16 16:00 36.4 96 20 170/110 98 Room Air 06/29/16 12:09 36.8 66 18 159/92 98 Room Air 06/29/16 12:00 95 Room Air 06/29/16 12:00 Room Air 06/29/16 10:40 104 Physical Exam General Appearance: no apparent distress Respiratory/Chest: no respiratory distress, no accessory muscle use Neurologic/Psychiatric: no motor/sensory deficits, alert, normal mood/affect, oriented x 3, + pertinent finding Laboratory Results Last 24 Hours Test 06/29/16 12:20 06/29/16 17:38 06/29/16 22:57 06/30/16 05:42 Sodium Level 134 mmol/L 134 mmol/L 137 mmol/L 134 mmol/L Potassium Level 3.9 mmol/L Chloride Level 99 mmol/L Carbon Dioxide Level 28 mmol/L Anion Gap 7.0 mmol/L Blood Urea Nitrogen 3 mg/dl Creatinine 0.50 mg/dl Est Creatinine Clear Calc Drug Dose 171.1 ml/min Estimated GFR () > 150.0 Estimated GFR (Non- 139.4 BUN/Creatinine Ratio 6.4 Random Glucose 86 mg/dl Calcium Level 9.0 mg/dl Magnesium Level 2.2 mg/dl Assessment and Plan This is a 36 year old male with PMH of seizure disorder, tobacco use disorder, alcohol abuse presents status-post seizure episode Seizure Disorder 06/30 restart Dilantin outpatient neurology follow-up outpatient primary care follow-up on July 06 @ 2:50PM with Dr. De La Torre no driving for 6 months 06/29 patient with a history of epileptic seizures is to be on Dilantin - but does not take this due to side effects (diarrhea) states he takes this prior to his blood tests so it appears as if he takes this chronically has been off of Dilantin for months now witness seizure event Dilantin restarted appreciate neurology input - will discuss other options if covered by insurance Hyponatremia 06/30 appreciate nephro input sodium levels down to 134 he is told to not drink as much water as outpatient recheck sodium level on July 0406/29 patient presented with hyponatremia, 124 - likely due to excessive water intake and alcohol use was given fluids in the ER and he overcorrected to 137 appreciate nephrology input given bolus of D5W, now on D5 @ 100mL/hr sodium level down to 134 at noon, will recheck in AM Alcohol Abuse drinks nightly; 3-4 beers currently getting folate/thiamine monitor Mg levels will monitor for DTs Tobacco Use Disorder 06/30 offered nicotine patch for outpatient use to help with tobacco cessation patient is not interested and states he will likely go back to smoking 1PPD Nicotine patch placed while inpatient DVT ppx SCDs/ambulation FULL CODE
[2016-06-30] MEDS ORDERED: NCDT21 TD (09:41)
--- NOTE | 2016-06-30 09:42 | Discharge Instructions ---
Discharge Instructions Date of Service Jun 30, 2016. Admission Reason for Admission: Hyponatremia Discharge Discharge Diagnosis / Problem: Seizure; Hyponatremia Discharge Goals Goal(s): Decrease discomfort, Improve function, Diagnostic testing, Therapeutic intervention Activity Recommendations Activity Limitations: resume your previous activity . Instructions / Follow-Up Instructions / Follow-Up Please follow-up with Dr. De La Torre on July 06 @ 2:50PM You should have your blood work checked on Monday or Monday of next week (07/04 or 07/05) to check your sodium levels Do not stop taking your Dilantin 100mg four times a day - follow-up with neurology as outpatient for possible alternative medication Do not drive for 6 months - until cleared by neurology Be careful about how much water you drink - if you drink too much, it may drop your sodium levels You are encouraged to stop smoking - nicotine patch was sent to your pharmacy; ask your primary care for further help Please cut back on the alcohol use Current Hospital Diet Patient's current hospital diet: AHA Diet (Heart Healthy) Discharge Diet Recommended Diet: Regular Diet Pending Studies Studies pending at discharge: no Medical Emergencies . Who to Call and When: Medical Emergencies: If at any time you feel your situation is an emergency, please call 911 immediately. . Non-Emergent Contact Non-Emergency issues call your: Primary Care Provider . . "Provider Documentation" section prepared by Jamey Huggins. VTE Core Measure Inpt VTE Proph given/why not?: SCD's
--- NOTE | 2016-06-30 09:45 | Discharge Summary ---
Discharge Summary Date of Service Jun 30, 2016. Discharge Summary Admission Date: Jun 28, 2016 at 20:05 Discharge Date: Jun 30, 2016 Discharge Disposition: Home Principal Diagnosis: Seizure Disorder Hyponatremia Medication Reconciliation New Medications: Nicotine (Nicotine) 1 Patch Tdsy 21 MG TD QAM for 30 Days, #1 BOX Continued Medications: Phenytoin Sodium (Dilantin) 100 Mg Cap 100 MG PO QID for 30 Days, #120 CAP (This prescription has been renewed) Admission Information Physical Exam (per Admitting): DATE OF ADMISSION: 06/28/2016 PRIMARY CARE PHYSICIAN: Dr. Jacobsen Patient history obtained from the px and records. CHIEF COMPLAINT: Fall, possible seizures. HISTORY OF PRESENT ILLNESS: Medical history is significant for seizure disorder, ongoing alcohol and tobacco abuse. Patient has had known seizures since July 2011. Convulsions/generalized seizures witnessed by coworkers. [facility] neurolog[place] at that time thought seizures were not alcohol related as they had occurred after the patient had cut down on drinking. Unremarkable EEG and MRI. Patient's last seizure was probably in July 2013. Patient admits to not being compliant with home Dilantin because of GI upset. He has not been taking for med for months. He admits to just taking Dilantin when he is about to go for a blood test. 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 As per records, sudden seizure activity witnessed by employer. Patient has no recollection of the events; thinks he may have been out for a couple of minutes. No tongue biting. No incontinence noted. No chest pain. no sob. No headache. MEDICAL HISTORY: As above. SURGERIES: None. HOME MEDICATIONS: The patient is supposed to take that Dilantin ER 100 mg three times a day as per outpx records. FAMILY HISTORY: No seizure disorder in the family. PERSONAL AND SOCIAL HISTORY: A pack daily. Daily alcohol intake. 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 REVIEW OF SYSTEMS: As per HPI. Occasional painless rectal bleeding. all other ROS negative. PHYSICAL EXAMINATION: VITAL SIGNS: Blood pressure noted to be 162/82 pulse rate 107, RR 18, temperature 36.8 and sats 94 on room air. GENERAL: Noted to be irate, no respiratory distress. SKIN: Normal color. HEENT: [place] palpebral conjunctivae. Dry mucosa. NECK: No JVD. Supple. CHEST: Clear to auscultation. HEART: Tachycardic. ABDOMEN: Nontender. EXTREMITIES: No edema, no tenderness. NEUROLOGIC: No gross focality. LABORATORY DATA: Hemoglobin was noted to be 15, hematocrit 41 white cell count 11.6 and platelets 200 Sodium 124, potassium 3.8, chloride 86, CO2 15, BUN 5, creatinine 0.9, glucose was noted to be 119. Dilantin level was noted to be less than 0.4. ASSESSMENT: 1. Breakthrough seizures hx epilepsy medication noncompliance Patient seems to be in denial hx seizure DSO diagnosis. Seizure threshold possibly lowered by acute on possibly chronic hyponatremia ( outpx sodium 130s) and ongoing alcohol abuse. 2. Situational hypertension. 3. Ongoing tobacco abuse. PLAN: PCU. Careful correction of sodium. hyponatremia siddiqi Nephrology consult RE hyponatremia. Resume Dilantin. Explained to patient need for him to comply w/ Dilantin rx given apprehension related to GI upset w/c he attributes to taking medication in the past. Patient AED options limited by financial constraints. seizure precautions, Ativan prn Neurology consult RE breakthrough seizures DT precautions Nicotine patch. DVT prophylaxis, SCDs. Full code. Hospital Course This is a 36 year old male with PMH of seizure disorder, tobacco use disorder, alcohol abuse presents status-post seizure episode Seizure Disorder 06/30 restart Dilantin outpatient neurology follow-up outpatient primary care follow-up on July 06 @ 2:50PM with Dr. De La Torre no driving for 6 months 06/29 patient with a history of epileptic seizures is to be on Dilantin - but does not take this due to side effects (diarrhea) states he takes this prior to his blood tests so it appears as if he takes this chronically has been off of Dilantin for months now witness seizure event Dilantin restarted appreciate neurology input - will discuss other options if covered by insurance Hyponatremia 06/30 appreciate nephro input sodium levels down to 134 he is told to not drink as much water as outpatient recheck sodium level on July 0406/29 patient presented with hyponatremia, 124 - likely due to excessive water intake and alcohol use was given fluids in the ER and he overcorrected to 137 appreciate nephrology input given bolus of D5W, now on D5 @ 100mL/hr sodium level down to 134 at noon, will recheck in AM Alcohol Abuse drinks nightly; 3-4 beers currently getting folate/thiamine monitor Mg levels will monitor for DTs Tobacco Use Disorder 06/30 offered nicotine patch for outpatient use to help with tobacco cessation patient is not interested and states he will likely go back to smoking 1PPD Nicotine patch placed while inpatient DVT ppx SCDs/ambulation FULL CODE Total time spent on discharge = 40 minutes This includes examination of the patient, discharge planning, medication reconciliation, and communication with other providers. Discharge Instructions Please follow-up with Dr. De La Torre on July 06 @ 2:50PM You should have your blood work checked on Monday or Monday of next week (07/04 or 07/05) to check your sodium levels Do not stop taking your Dilantin 100mg four times a day - follow-up with neurology as outpatient for possible alternative medication Do not drive for 6 months - until cleared by neurology Be careful about how much water you drink - if you drink too much, it may drop your sodium levels You are encouraged to stop smoking - nicotine patch was sent to your pharmacy; ask your primary care for further help Please cut back on the alcohol use
[2016-06-30 10:43] VITALS: BP 128/80; PULSE 91; TEMP 37; O2SAT 96
[2016-07-01] MEDS ORDERED: GABAPENTIN 600MG Q12H DOSE PO SCH
[2016-07-02] MEDS ORDERED: GABAPENTIN 600MG X1 DOSE PO SCH (12:00)
== END 2016-06-30 11:37 | disposition home or self-care (01) | DRG 101 ==
LOC: ENRESERVDT → ENRESERVTM → EDBD 18:35 → C.EDB 18:38 → C.EDINP 20:05 → C.2E 06-29 11:48
PROVIDERS: ADMIT Family Medicine; ATTEND Family Medicine
DX: G40.909 Epilepsy, unspecified, not intractable, without status epilepticus (principal); E87.1 Hypo-osmolality and hyponatremia; Z91.128 Patient's intentional underdosing of medication regimen for other reason; R63.1 Polydipsia; I10 Essential (primary) hypertension; F10.20 Alcohol dependence, uncomplicated; F17.210 Nicotine dependence, cigarettes, uncomplicated